=== PATIENT | male | born 1935 | race Caucasian/White ===

== ENCOUNTER → 2016-08-05 | Outpatient (CLI) | payer OTHER ==
[~2016-08-05] MED LIST: ACET1TAB84 PO; ALFU1TAB37 PO; BICA50TA6 PO; CALC500C70 PO; FLUT0.15 NAE; LISI-725 PO; LPRI INJ; METO25TA56 PO; MTR400 PO; MULT-506 PO; OMEG10007 PO; PSYL48.59 PO; REDCAP4 PO; fenofibrate
[2016-08-05 09:20] VITALS: BP 126/70; PULSE 60; TEMP 36.7; O2SAT 98
--- NOTE | 2016-08-05 11:00 | Radiation Oncology Follow-Up ---
Radiation Oncology Follow-Up Date of Visit Aug 05, 2016. Reason For Visit Follow-up post Medrol Dosepak Radiation Completion Date Cesium 131 seed implant 03/10/15;IMRT 06/10/15;Hormonal suppression Diagnosis (1) Prostate cancer Status: Resolved Onset Date: 12/01/2014 Stage: ll Permanent Comment: Rising PSA pretreatment PSA 11 on Proscar therefore 22 Status post ultrasound-guided biopsies 12/01/2014 revealing [place] 4+5 and 5+5 Biopsy stage T2c Status post Lupron 45 mg IM 01/09/2015 Status post prostate seed implant with cesium 131 03/10/2015 54 seeds were placed 8500 cGy Status post completion of IMRT/IGRT completed 06/10/2015 received 5040 cGy Casodex 50 mg daily Status post Lupron 45 mg IM 07/10/2015 Status post Lupron 45 mg IM 01/12/2016 Status post Lupron 45 mg IM 07/12/2016 (last) Radiation proctitis Last Edited By: Violette Mckeon on Aug 05, 2016 10:52 History of Present Illness his reasonably fit 80-year-old gentleman was referred to us for consideration of definitive treatment for his biopsy proven prostate cancer. The patient had been followed by urology with yearly PSA checks. His PSA took a mild bump and then on repeat was substantiated with a level on 11/06/2014 of 11. It is of note that the patient is on Proscar in view of BPH. The Proscar has been very successful. The patient went on to have an ultrasound guided needle biopsy of his prostate. On 12/01/2014 this procedure was done. He was found to have a prostate of 36 mL. There were 13 cores obtained at his needle biopsy. The patient had 8 dose of those 13 cores involved with carcinoma. The cancer was both [place] 4+5=9 and 5+5=10. 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 The patient has no symptoms relative to his tumor. He passes his urine quite well since the Proscar. The patient does not wish to have a prostatectomy and it would be inappropriate at his age. The patient did have a brief discussion with his urologist as to therapy for this. She is recommending external beam therapy coupled with hormonal manipulation. It was felt that the patient have best prognosis with hormone suppression followed by prostate seed implant and then external beam therapy. The patient started total androgen ablation with Lupron and Casodex in December 2014. He underwent a prostate seed implant with Cesium 131 as boost on 2014. A total of 54 seeds were placed and a planned dose of 85 Gy delivered. The patient went on to have his external radiation with IMRT and IGRT which delivered an additional dose of 50.4 Gy and was completed on 06/10/2015. He has had his second injection of Lupron 45 mg on 07/10/2015 and his third injection of Lupron 45 mg on 01/12/2016. He is scheduled for his final injection of Lupron on 07/21/2016. Patient is tolerating the hormonal suppression fairly well with mild hot flashes but no other significant side effects. He tolerated his implant and external radiation fairly well with anticipated side effects that have improved. He was seen in our department in follow-up on 01/12/2016. He has been doing well over the past 6 months. For urinary standpoint his AUA score was 6. At his last visit his AUA score was 8. At the end of treatment the score was 12. Completed and expanded prostate cancer index composite for clinical practice and gave a score of one of 12 and urinary incontinence symptoms. He gave a score of 0 12 and urinary irritation symptoms. He gave a score of one of 12 in bowel symptoms. He did not complete the sexual symptom section. He gave a score of one of 12 in hormonal vitality symptoms. His total was 3 of 48. In reviewing the epic questionnaire, he stated that he'll have urgency of bowel movement in the morning. He only goes 1 time per day which is normal for him. He does have hot flashes. These happen proximal he 3 times per night and then throughout the day. He does not find that these are that bothered some to him. He does have issues with low back pain for many years he has spinal stenosis and we discussed use of ibuprofen which she uses on a minimal basis 05/24/2016 In January of this year after several episodes of straining for constipation while riding a tractor he noted bright red blood in his underwear. This was a isolated episode that has not been repeated. However he contacted his physicians and a colonoscopy was recommended. The patient was seen by Dr. Matt and underwent an upper GI and a colonoscopy. The upper GI was unremarkable. The colonoscopy revealed non-thrombosed external hemorrhoids. If you small mouth diverticula were found in the sigmoid colon. A few small angioectasias with bleeding were noted in the rectum. The exam was otherwise without abnormality. It was felt that these changes were consistent with his history of prior radiation secondary to the prostate seed implant. No other abnormalities were seen and a repeat colonoscopy was recommended for those than 5 years. In the interim the patient has noted periodic episodes of blood on the toilet paper. This would happen every few weeks but more recently has happening weekly or a few times within a week. If again is only on the toilet paper. At times it is bright red and at other times it is dark red. The patient states that his bowels are generally moving fairly well and occasionally firm rarely constipated. He does note increasing bleeding following episodes of constipation. He does take occasional stool softener. He also notes a swollen sensation inside his rectum when he sits. He denies pain. The patient's urination continues to to be stable. He does have nocturia 3 and is taking Uroxatral on a daily basis. His most recent AUA score is a 9 which is slightly increased from a score of 6 in December of this past year. The patient also completed his EPIC-CP and received a score of 16 out of 60. The majority of his complaints are related to inability to obtain an erection. He does continue to have hot flashes mostly in the evening. He describes these as short -term and mild. 07/12/2016 Over the past month he continues to have issues with rectal bleeding. He has been following the instructions of using Metamucil daily. He does have some difficulty with using a full tablespoon. We did review the amount of fluid he is mixing with the Metamucil and is likely not be using enough fluid. He continues on Uroxatral daily. He continues to have intermittent episodes of rectal bleeding. He has a feeling of swelling in the area of the rectum. He also has mild dysuria. He is here today for his Lupron injection and follow-up on the episodes of rectal bleeding. He completed an AUA score sheet and gave a score of 9. This is unchanged from the last visit. He completed and expanded prostate cancer index composite for clinical practice and gave a score of 0 12 in urinary incontinence symptoms. He gave a score of 5 of 12 and urinary irritation symptoms. He of a score of one of 12 in bowel symptoms. He did not complete the sexual symptoms. He gave a score of 0 12 in hormonal vitality symptoms. He had a recheck PSA 01/14/2016 that was less than 0.02. Interim History He had been seen on July 12 with complaint of intermittent rectal bleeding. He had had a colonoscopy which revealed radiation proctitis. Options of treatment were reviewed with the patient and he wished to be treated with a Medrol Dosepak. He is being seen in follow-up today to review his outcome. He has had steady improvement. Over the past 2 weeks he has had very minimal bleeding. On one occasion he did have an increase in bleeding but it was after straining with a bowel movement. He is using Metamucil daily and eating prunes at bedtime. He also had improvement in the slight dysuria that he was feeling after taking the Medrol Dosepak. He does continue to have some difficulty with a slow stream. He gave an AUA score of 12. He completed expanded prostate cancer index composite for clinical practice and gave a score of 0 12 in urinary incontinence symptoms. He gave a score of 3 of 12 in urinary irritation symptoms. He gave a score of one of 12 bowel symptoms. He gave a score of 0 of 12 in sexual symptoms. He gave a score of 0 12 and hormonal vitality symptoms. His total was 4 of 60. Allergies Coded Allergies: Statins (Verified Adverse Reaction, Unknown, MUSCLE ACHES, 02/02/16) Home Medications Scheduled Alfuzosin HCl (Uroxatral), 10 MG PO QPM Bicalutamide (Casodex), 50 MG PO DAILY Calcium/Vitamin D (Os-Luis 500 Plus D), 1 TAB PO QAM Fish Oil ([place]raws-3), 2 CAP PO QAM Fluticasone Propionate (Nasal) (Flonase Allergy Relief), 1 SPRAY IVIS DAILY Leuprolide Acetate (Lupron Depot), 45 MG INJ [id number] Lisinopril (Zestril), 20 MG PO QAM Metoprolol Tartrate (Lopressor) (Lopressor), 12.5 MG PO BID Multivitamin (Multivitamin), 1 TAB PO QAM Psyllium (Metamucil), 1 TBS PO DAILY Red Yeast Rice Extract (Red Yeast Rice Extract), 1 TABS PO BID [fenofibrate], 54 MG NOON Scheduled PRN Acetaminophen (Tylenol Arthritis Ext Rel), 650 MG PO Q8H PRN for Pain Ibuprofen (Ibuprofen), 400 MG PO Q6 PRN for Pain Review of Systems Gastrointestinal: Symptoms: WNL, Rectal Bleeding GI Comments: 1-2 BMs/day;keeping stools softer;urgency w/BMs; Oral: Symptoms: No Problems Respiratory: Symptoms: Dry Cough Other Respiratory: Dry cough he relates to postnasal drips - chronic Urinary: Comments: See below notations Skin: Symptoms: No Problems Physical Exam Vital Signs Date Time Temp Pulse Resp B/P Pulse Ox O2 Delivery O2 Flow Rate FiO2 08/05/16 09:20 36.7 60 20 126/70 98 Fatigue: None General Appearance: no apparent distress Eyes: normal inspection, EOMI ENT: normal ENT inspection, hearing grossly normal Neck: no adenopathy Respiratory/Chest: lungs clear, no respiratory distress, no accessory muscle use Cardiovascular: regular rate, rhythm, no gallop, no murmur Abdomen: non tender, soft, no organomegaly Extremities: no pedal edema Neurologic/Psychiatric: no motor/sensory deficits, alert, normal mood/affect Skin: warm/dry Lymphatic: no adenopathy Laboratory Studies He had a PSA 07/21/2016 was less than 0.02 Assessment & Plan Plan: Continue recheck PSAs every 6 months. He has a follow-up appointment with Dr. Zhou in a year. We asked him to return to our office in 6 months and have a PSA prior to that visit. I gave him an order to have that performed at his local laboratory. He is happy with the outcome of the treatment with a Medrol Dosepak. I did discuss that should this recur or become problematic we could repeat the Medrol Dosepak. We also discussed other alternatives of treatment including argon laser therapy. He will call our office if he has any problems in the interim. Total Time In Follow-Up I spent 20 minutes speaking to the patient and performing examination. I spent 15 minutes reviewing information and completing this note. Copy To Vane Zhou MD; Homar Yu D.O.
== END | disposition home or self-care (01) ==
LOC: C.ONC 09:48
PROVIDERS: ATTEND Radiology Radiation Oncology
DX: Z08 Encounter for follow-up examination after completed treatment for malignant neoplasm (principal); Z92.3 Personal history of irradiation; Z85.46 Personal history of malignant neoplasm of prostate

== ENCOUNTER → 2016-09-16 | Outpatient (CLI) | payer OTHER ==
--- NOTE | 2016-09-16 13:31 | DIAGNOSTIC IMAGING REPORT ---
Venous Doppler left leg LEFT VENOUS DOPP LOWER EXT UNILAT CLINICAL HISTORY: LEFT LEG PAIN, CALF, PAIN SWELLING TECHNIQUE: Venous Doppler COMPARISON STUDY: None FINDINGS: Normal study IMPRESSION: Normal study Electronically signed by: Ozzie Mullen M.D. 09/16/2016 1:30 PM Dictated Date/Time: 09/16/2016 1:28 PM
== END | disposition home or self-care (01) ==
LOC: C.ULTRBC 12:59
PROVIDERS: ATTEND Internal Medicine
DX: M79.662 Pain in left lower leg (principal)

== ENCOUNTER → 2017-02-02 | Outpatient (CLI) | payer OTHER ==
[2017-02-02 13:38] VITALS: BP 127/63; PULSE 71; TEMP 36.6; O2SAT 97
--- NOTE | 2017-02-02 16:48 | Radiation Oncology Follow-Up ---
Radiation Oncology Follow-Up Date of Visit Feb 02, 2017. Reason For Visit 6 month follow-up Radiation Completion Date seed implant on 03-10-2015 and IMRT / IGRT 06-10-2015 Diagnosis (1) Prostate cancer Status: Resolved Onset Date: 12/01/2014 Stage: ll Permanent Comment: Rising PSA pretreatment PSA 11 on Proscar therefore 22 Status post ultrasound-guided biopsies 12/01/2014 revealing [place] 4+5 and 5+5 Biopsy stage T2c Status post Lupron 45 mg IM 01/09/2015 Status post prostate seed implant with cesium 131 03/10/2015 54 seeds were placed 8500 cGy Status post completion of IMRT/IGRT completed 06/10/2015 received 5040 cGy Casodex 50 mg daily Status post Lupron 45 mg IM 07/10/2015 Status post Lupron 45 mg IM 01/12/2016 Status post Lupron 45 mg IM 07/12/2016 (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 The patient had been followed by urology with yearly PSA checks. His PSA took a mild bump and then on repeat was substantiated with a level on 11/06/2014 of 11. It is of note that the patient is on Proscar in view of BPH. The Proscar has been very successful. The patient went on to have an ultrasound guided needle biopsy of his prostate. On 12/01/2014 this procedure was done. He was found to have a prostate of 36 mL. There were 13 cores obtained at his needle biopsy. The patient had 8 dose of those 13 cores involved with carcinoma. The cancer was both [place] 4+5=9 and 5+5=10. 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 The patient has no symptoms relative to his tumor. He passes his urine quite well since the Proscar. The patient does not wish to have a prostatectomy and it would be inappropriate at his age. The patient did have a brief discussion with his urologist as to therapy for this. She is recommending external beam therapy coupled with hormonal manipulation. It was felt that the patient have best prognosis with hormone suppression followed by prostate seed implant and then external beam therapy. The patient started total androgen ablation with Lupron and Casodex in December 2014. He underwent a prostate seed implant with Cesium 131 as boost on 2014. A total of 54 seeds were placed and a planned dose of 85 Gy delivered. The patient went on to have his external radiation with IMRT and IGRT which delivered an additional dose of 50.4 Gy and was completed on 06/10/2015. The prostate seed implant was complicated by development of urinary retention. This required self-catheterization. Following completion of treatment he develop radiation proctitis. Interim History The past 6 months he has been doing well. The treatment with steroid therapy greatly improve the radiation proctitis. He now has a very small amount of bleeding approximately every 3 weeks. This occurs with straining bowel movement. He uses Metamucil regularly and this helps to decrease the episodes of bleeding. He has no urgency. He is careful to keep his bowels soft. He tries to eat fruit and occasionally will also add Colace. His last Lupron injection was 07/12/2016. He still continues to have an occasional hot flash. His urinary status is stable on Uroxatral. He is taking 1 after supper. His AUA score today was 8. He completed expanded prostate cancer index composite for clinical practice and gave a score of 2 of 12 and urinary incontinence symptoms. He gave a score of 2 of 12 and urinary irritation symptoms. He gave a score 1 of 12 in bowel symptoms. He did not complete the sexual symptom side effects. He gave a score 1 of 12 in hormonal vitality symptoms. His total with 6 of 48. He has had recheck PSAs. His last PSA was less than 0.02. Perform 01/27/2017. Allergies Coded Allergies: Statins (Verified Adverse Reaction, Unknown, MUSCLE ACHES, 02/02/16) Home Medications Scheduled Alfuzosin HCl (Uroxatral), 10 MG PO QPM Bicalutamide (Casodex), 50 MG PO DAILY Calcium/Vitamin D (Os-Luis 500 Plus D), 1 TAB PO QAM Fish Oil ([place]-3), 2 CAP PO QAM Lisinopril (Zestril), 20 MG PO QAM Metoprolol Tartrate (Lopressor) (Lopressor), 12.5 MG PO BID Multivitamin (Multivitamin), 1 TAB PO QAM Psyllium (Metamucil), 1 TBS PO DAILY Red Yeast Rice Extract (Red Yeast Rice Extract), 1 TABS PO BID [fenofibrate], 54 MG NOON Scheduled PRN Acetaminophen (Tylenol Arthritis Ext Rel), 650 MG PO Q8H PRN for Pain Fluticasone Propionate (Nasal) (Flonase Allergy Relief), 1 SPRAY IVIS DAILY PRN for Notification Review of Systems Gastrointestinal: Symptoms: Rectal Bleeding GI Comments: rectal bleeding about every 3 weeks after a BM - if he has to strain Oral: Symptoms: No Problems Respiratory: Symptoms: WNL Other Respiratory: " post nasal drip " Urinary: Symptoms: Nocturia Comments: nocturia times 3 , occ has trouble starting stream, urgency Skin: Symptoms: No Problems Physical Exam Vital Signs Date Time Temp Pulse Resp B/P (MAP) Pulse Ox O2 Delivery O2 Flow Rate FiO2 02/02/17 13:38 36.6 71 16 127/63 97 Pain: Side: Bilateral Patient Pain Scale: 0 - 10 Initial Pain Intensity: 0.0 Fatigue: None General Appearance: no apparent distress Eyes: normal inspection, EOMI ENT: normal ENT inspection, hearing grossly normal Neck: no adenopathy, thyroid normal Respiratory/Chest: lungs clear, no respiratory distress, no accessory muscle use Cardiovascular: regular rate, rhythm, no gallop, no murmur Abdomen: non tender, soft, no organomegaly Anal / Rectum: Normal sphincter tone. No rectal masses and no rectal bleeding. Extremities: no pedal edema Neurologic/Psychiatric: no motor/sensory deficits, alert, normal mood/affect Additional Studies PSA 01/27/2017 was less than 0.02. Assessment & Plan Plan: Case was discussed with Dr. Hannah. He has been on Casodex over the past 2 years. It was felt that he now can stop Casodex. He completed Lupron therapy with his last injection being 07/12/2016. Continue PSAs and office visits every 6 months[address] He'll see Dr. Zhou in June. We asked him to return to our office in 1 year. He may call if he has any questions or concerns in the interim. Total Time In Follow-Up I spent 25 minutes speaking to the patient and performing examination. I spent 15 minutes reviewing information and completing this note. Copy To Vane Zhou MD; Homar Yu D.O.
== END | disposition home or self-care (01) ==
LOC: C.ONC 13:27
PROVIDERS: ATTEND Physician Assistant Medical
DX: Z08 Encounter for follow-up examination after completed treatment for malignant neoplasm (principal); Z92.3 Personal history of irradiation; Z85.46 Personal history of malignant neoplasm of prostate